=== PATIENT | male | born 1980 | race Caucasian/White ===

== ENCOUNTER 2016-11-18 19:42 | Emergency (ER) | payer OTHER ==
[~2016-11-18] VITALS: Ht 188 cm; Wt 102.7 kg
[2016-11-18] MEDS ORDERED: KEFLEX500 MG PO (21:59)
[2016-11-18] MEDS ORDERED: NAPROSYN500 MG PO (21:59)
[2016-11-18 22:20] VITALS: BP 169/89
== END 2016-11-18 22:20 | disposition home or self-care (01) ==
LOC: EME 19:42 → EXP 19:42
DX: S57.82XA Crushing injury of left forearm, initial encounter (principal); W52.XXXA Crushed, pushed or stepped on by crowd or human stampede, initial encounter; Y93.89 Activity, other specified; Y92.511 Restaurant or cafe as the place of occurrence of the external cause; Y99.0 Civilian activity done for income or pay; L03.114 Cellulitis of left upper limb
CPT/HCPCS: 73090; 99281; 99284